=== PATIENT | male | born 1995 | race Caucasian/White ===

== ENCOUNTER → 2018-01-30 | Outpatient (REF) | payer OTHER | LOC: M SFHCLERA 12:12 | DX: J02.9 Acute pharyngitis, unspecified (principal) ==

== ENCOUNTER 2025-07-25 13:01 | Inpatient (IN) | payer OTHER ==
[~2025-07-25] VITALS: Ht 190.5 cm; Wt 121.5 kg
[2025-07-25] VITALS (7 sets, daily range): BP systolic 125–142; BP diastolic 65–77; TEMP 97–97.9; O2SAT 95–97
[2025-07-25 14:22] LABS: BASO # 0.0 10^3/uL (0.0-0.2); BASO % 0.2 % (0.0-1.0); EOS # 0.1 10^3/uL (0.0-0.5); EOS % 0.5 % (0.0-3.0); LYMPH # 2.3 10^3/uL (1.5-5.0); LYMPH % 13.5 % (24.0-44.0); MONO # 1.2 10^3/uL (0.0-0.8); MONO % 7.1 % (2.0-8.0); NEUTROPHILS # 13.6 10^3/uL (1.5-8.5); NEUTROPHILS % 78.4 % (36.0-66.0); PLATELET COUNT, AUTOMATED 287 10^3/uL (150-450)
[2025-07-25 14:48] LABS: C REACTIVE PROTEIN QUANTITATIV 5.49 MG/DL (<1.0); CALCIUM LEVEL 9.3 MG/DL (8.5-10.1); CARBON DIOXIDE LEVEL 25 MMOL/L (20-31); CHLORIDE LEVEL 103 MMOL/L (98-107); CREATININE FOR GFR 0.65 MG/DL (0.70-1.30); GLOMERULAR FILTRATION RATE > 90.0 (>60); POTASSIUM SERUM 3.9 MMOL/L (3.5-5.1); SODIUM LEVEL 138 MMOL/L (136-145)
[2025-07-25] MEDS ORDERED: ISOVUE-370 76% 100 ML VIAL As Ordered ONE (14:58)
[2025-07-25] MEDS: NS (Normal Saline) 0.9% 1,000 ML IV ONE (16:25)
[2025-07-25] MEDS: AMPICILLIN SOD/SULBACTAM SOD 3 GM in DEXTROSE 5% (D5W) MINI-BAG PLU 100 ML IV ONE (16:43)
[2025-07-25] MEDS ORDERED: MIDAZOLAM INJ 2 MG/2 ML VIAL As Ordered ONE (17:23)
[2025-07-25] MEDS ORDERED: ROCURONIUM BROMIDE 50MG/5ML VIAL As Ordered ONE (17:24)
[2025-07-25] MEDS ORDERED: dexAMETHasone 4 MG/ML 1 ML VIAL As Ordered ONE (17:24)
[2025-07-25] MEDS ORDERED: ONDANSETRON 4MG/2ML VIAL As Ordered ONE (17:24)
[2025-07-25] MEDS ORDERED: dexmedeTOMIDine (4 MCG/ML) 200 MCG/50 ML BTL As Ordered ONE (17:24)
[2025-07-25] MEDS ORDERED: LIDOCAINE 2% 100 MG/5 ML SDV (FOR ANES.) As Ordered ONE (17:24)
[2025-07-25] MEDS ORDERED: ACETAMINOPHEN 1000MG/100ML IV BAG As Ordered ONE (17:59)
[2025-07-25] MEDS: OXYMETAZOLINE 0.05% NASAL SPRAY As Ordered ONE (18:00)
[2025-07-25] MEDS: LIDOCAINE W/EPINEPHrine 1% 20 ML VIAL As Ordered ONE (18:40)
[2025-07-25] MEDS ORDERED: SUGAMMADEX SODIUM 500 MG/5 ML VIAL As Ordered ONE (18:43)
[2025-07-25] MEDS ORDERED: MORPHINE 2 MG/ML 1 ML VIAL IV PRN (19:00)
[2025-07-25] MEDS ORDERED: HYDROMORPHONE HCL 0.5 MG/0.5 ML SYRINGE IV PRN (19:00)
[2025-07-25] MEDS ORDERED: MOM 30 ML SUSPENSION UDC PO PRN (19:40)
[2025-07-25] MEDS ORDERED: traZODone 50 MG TAB PO PRN (19:40)
[2025-07-25] MEDS ORDERED: KETOROLAC 30 MG/ML 1 ML VIAL IV PRN (21:00)
[2025-07-25] MEDS ORDERED: ONDANSETRON 4MG/2ML VIAL IV PRN (22:00)
[2025-07-25] MEDS: AMPICILLIN SOD/SULBACTAM SOD 3 GM in DEXTROSE 5% (D5W) MINI-BAG PLU 100 ML IV SCH (22:58)
[2025-07-25] MEDS: LR 1,000 ML IV SCH (23:25)
[2025-07-26 00:57] VITALS: BP 138/80; TEMP 97.4; O2SAT 95
[2025-07-26 03:20] VITALS: BP 138/72; TEMP 97; O2SAT 96
[2025-07-26 06:05] LABS: PLATELET COUNT, AUTOMATED 324 10^3/uL (150-450)
[2025-07-26 06:35] LABS: ALT/SGPT 16 U/L (7.0-40); AST/SGOT 11 U/L (<34); CALCIUM LEVEL 9.0 MG/DL (8.5-10.1); CARBON DIOXIDE LEVEL 26 MMOL/L (20-31); CHLORIDE LEVEL 105 MMOL/L (98-107); CREATININE FOR GFR 0.63 MG/DL (0.70-1.30); GLOMERULAR FILTRATION RATE > 90.0 (>60); MAGNESIUM LEVEL 2.0 MG/DL (1.8-2.4); POTASSIUM SERUM 4.1 MMOL/L (3.5-5.1); SODIUM LEVEL 141 MMOL/L (136-145)
[2025-07-26 07:37] VITALS: BP 134/60; TEMP 96.8; O2SAT 95
[2025-07-26] MEDS: ENOXAPARIN 40 MG/0.4 ML SYRINGE (J1650 PER 10MG) SC SCH (08:44)
[2025-07-26] MEDS: PANTOPRAZOLE 40MG VIAL IV SCH (08:44)
[2025-07-26] MEDS ORDERED: HOME MED LIST COMPLETE! XX SCH (09:00)
[2025-07-26] MEDS: ACETAMINOPHEN 325 MG TAB PO PRN (12:02)
[2025-07-26 12:27] VITALS: BP 140/82; TEMP 99.2; O2SAT 97
[2025-07-26 16:00] VITALS: BP 136/70; TEMP 99.1; O2SAT 96
[2025-07-26 20:00] VITALS: BP 139/80; TEMP 98.1; O2SAT 97
[2025-07-27] VITALS: BP 131/77; TEMP 98.3; O2SAT 98
[2025-07-27 04:00] VITALS: BP 120/71; TEMP 97; O2SAT 97
[2025-07-27 07:35] VITALS: BP 136/75; TEMP 97.1; O2SAT 96
[2025-07-27] MEDS ORDERED: AMOX875T2 PO (08:54)
[2025-07-27] MEDS ORDERED: PRED20TA PO (09:17)
== END 2025-07-27 12:29 | disposition home or self-care (01) | DRG 97 ==
LOC: M ED 13:01 → M ED INP 17:45 → M PCU 19:48
PROVIDERS: ADMIT Otolaryngology; ATTEND Otolaryngology
PROC: 0C9P0ZZ Drainage of Tonsils, Open Approach (ICD-10-PCS; principal; 2025-07-25 16:44)
DX: J36 Peritonsillar abscess (principal); B95.0 Streptococcus, group A, as the cause of diseases classified elsewhere